=== PATIENT | female | born 1955 | race Caucasian/White ===

== ENCOUNTER → 2017-12-04 | Outpatient (CLI) | payer OTHER ==
[~2017-12-04] MED LIST: ASCO-90 PO; ASPI-496 PO; ASPI-515 PO; ATOR10TA PO; CALC1CAP8 PO; CELE200C PO; CHOL400T2 PO; DOCU-131 PO; IBUP-1223 PO; LEVO112T56 PO; MULT1CAP19 PO; ONDA4TAB10 PO; OXYC5TAB3 PO; TRAM50TA2 PO
== END ==
LOC: STAR 12:24
PROVIDERS: ATTEND Orthopaedic Surgery
DX: Z02.9 Encounter for administrative examinations, unspecified (principal)

== ENCOUNTER 2017-12-09 07:36 | Inpatient (IN) | payer OTHER ==
[~2017-12-09] VITALS: Ht 157.5 cm; Wt 100.3 kg
[~2017-12-09 07:36] MED LIST changes: -ASPI-515 PO; -CELE200C PO; -DOCU-131 PO; +EPINEPHRINE 1 MG/ML, 1ML ONE; -IBUP-1223 PO; +KETOROLAC 60 MG/2 ML ONE; -ONDA4TAB10 PO; -OXYC5TAB3 PO; +ROPIvacaine/PF 0.2%, 20 ML ONE; -TRAM50TA2 PO; +TRANEXAMIC ACID 100 MG/ML, 10ML ONE
[2017-12-09] MEDS ORDERED: LACTATED RINGERS 1,000 ML IV SCH (08:12)
[2017-12-09] MEDS ORDERED: IBUP-1223 PO (08:19)
[2017-12-09] MEDS ORDERED: GABAPENTIN 300 MG CAPSULE PO ONE (08:30)
[2017-12-09] MEDS ORDERED: FENTANYL PF 250 MCG/5ML ONE (08:35)
[2017-12-09] MEDS ORDERED: MIDAZOLAM 1 MG/ML, 2ML ONE (08:35)
[2017-12-09] MEDS ORDERED: MIDAZOLAM 1 MG/ML, 2ML IV PRN (09:00)
[2017-12-09] MEDS ORDERED: ONDANSETRON 2MG/ML, 2ML IV PRN ×2 (09:00→09:30)
[2017-12-09] MEDS ORDERED: ACETAMINOPHEN 500 MG TABLET PO ONE (09:00)
[2017-12-09] MEDS ORDERED: FENTANYL PF 100 MCG/2ML IV PRN (09:00)
[2017-12-09] MEDS ORDERED: PROMETHAZINE 25 MG/ML, 1ML IV PRN (09:00)
[2017-12-09] MEDS ORDERED: EPHEDRINE 50 MG/ML, 1ML IM PRN (09:00)
[2017-12-09] MEDS ORDERED: ALBUTEROL/IPRATROPIUM 2.5MG/0.5MG, 3 ML NPPB PRN (09:00)
[2017-12-09] MEDS ORDERED: LABETALOL 5MG/ML, 20ML IV PRN (09:00)
[2017-12-09] MEDS ORDERED: OXYcodone 5 MG/5 ML ORAL.SOL UDC PO PRN (09:00)
[2017-12-09] MEDS ORDERED: MEPERIDINE/PF 25MG/0.5ML IVPush PRN (09:00)
[2017-12-09] MEDS ORDERED: SENNA/DOCUSATE TABLET PO PRN (09:30)
[2017-12-09] MEDS ORDERED: MAGNESIUM HYDROXIDE 8%, 30ML UDC PO PRN (09:30)
[2017-12-09] MEDS ORDERED: DIPHENHYDRAMINE 25 MG CAPSULE PO PRN (09:30)
[2017-12-09] MEDS ORDERED: ONDANSETRON 4 MG TABLET PO PRN (09:30)
[2017-12-09] MEDS ORDERED: PROMETHAZINE 25 MG/ML, 1ML IM PRN (09:30)
[2017-12-09] MEDS ORDERED: ALUMINUM/MAG/SIMETHICONE 30 ML UDC PO PRN (09:30)
[2017-12-09] MEDS ORDERED: HYDROmorphone 1 MG/ML, 1ML IV PRN (09:30)
[2017-12-09] MEDS ORDERED: BISACODYL 10 MG SUPP PR PRN (09:30)
[2017-12-09] MEDS ORDERED: EPHEDRINE 50 MG/ML, 1ML ONE (09:34)
[2017-12-09] MEDS ORDERED: PHENYLEPHRINE 10 MG/ML ONE (09:34)
[2017-12-09] MEDS ORDERED: PROPOFOL 10 MG/ML, 20ML ONE (10:15)
[2017-12-09] MEDS ORDERED: SUCCINYLCHOLINE 20 MG/ML, 10ML ONE (10:15)
[2017-12-09] MEDS ORDERED: CEFAZOLIN 1,000 MG ONE (10:15)
[2017-12-09] MEDS ORDERED: ONDANSETRON 2MG/ML, 2ML ONE (10:15)
[2017-12-09] MEDS ORDERED: LIDOCAINE GEL 2%, 5ML ONE (10:15)
[2017-12-09] MEDS ORDERED: DEXAMETHASONE 4 MG/ML, 1ML ONE (10:15)
[2017-12-09] MEDS ORDERED: HYDROmorphone 2 MG/ML, 1ML ONE (11:27)
[2017-12-09] MEDS ORDERED: FENTANYL PF 100 MCG/2ML ONE (11:27)
[2017-12-09] MEDS ORDERED: OXYcodone 5 MG/5 ML ORAL.SOL UDC ONE (11:34)
[2017-12-09] MEDS: HYDROmorphone 1 MG/ML, 1ML IV PRN ×3 (11:40→12:00)
[2017-12-09] MEDS ORDERED: TRANEXAMIC ACID 1,000 MG in SODIUM CHLORIDE 0.9% 100 ML IVPB ONE (12:00)
[2017-12-09 14:30] VITALS: BP 111/75
[2017-12-09] MEDS: ACETAMINOPHEN 650 MG/20.3 ML UDC PO PRN (14:54)
[2017-12-09] MEDS: OXYcodone IR 5MG TABLET PO PRN ×2 (14:54→21:22)
[2017-12-09] MEDS: ASPIRIN 81 MG TABLET EC PO SCH (18:37)
[2017-12-09] MEDS: D5%-0.45NACL+KCL 20MEQ 1,000 ML IV SCH (18:37)
[2017-12-09] MEDS: CEFAZOLIN PMX 1GM/50ML 50 ML IVPB SCH (18:38)
[2017-12-09 20:14] VITALS: BP 99/66
[2017-12-09] MEDS ORDERED: ATORVASTATIN 10 MG TABLET PO SCH (21:00)
[2017-12-09] MEDS: DOCUSATE 100 MG CAPSULE PO SCH (21:22)
[2017-12-10 00:42] VITALS: BP 102/64
[2017-12-10] MEDS: CEFAZOLIN PMX 1GM/50ML 50 ML IVPB SCH (02:17)
[2017-12-10] MEDS: D5%-0.45NACL+KCL 20MEQ 1,000 ML IV SCH (02:22)
[2017-12-10 04:21] VITALS: BP 91/56
[2017-12-10] MEDS: OXYcodone IR 5MG TABLET PO PRN ×2 (05:51→10:37)
[2017-12-10] MEDS: ASPIRIN 81 MG TABLET EC PO SCH (05:51)
[2017-12-10] MEDS ORDERED: LEVOTHYROXINE 112 MCG TABLET PO SCH (06:00)
[2017-12-10] MEDS ORDERED: DEXAMETHASONE 4 MG/ML, 1ML IVPush SCH (06:00)
[2017-12-10 07:28] VITALS: BP 97/60
[2017-12-10] MEDS ORDERED: TAMSULOSIN 0.4 MG CAP.ER.24H PO SCH (09:00)
[2017-12-10] MEDS ORDERED: KETOROLAC 30 MG/1 ML IV SCH (09:30)
[2017-12-10] MEDS: DOCUSATE 100 MG CAPSULE PO SCH (10:37)
[2017-12-10] MEDS: ACETAMINOPHEN 650 MG/20.3 ML UDC PO PRN (10:37)
[2017-12-10] MEDS ORDERED: ASPI-515 PO (12:03)
[2017-12-10] MEDS ORDERED: DOCU-131 PO (12:04)
[2017-12-10] MEDS ORDERED: ONDA4TAB10 PO (12:05)
[2017-12-10] MEDS ORDERED: CELE200C PO (12:07)
[2017-12-10] MEDS ORDERED: TRAM50TA2 PO (12:08)
[2017-12-10] MEDS ORDERED: OXYC5TAB3 PO (12:10)
== END 2017-12-10 13:20 | disposition home or self-care (01) | DRG 470 ==
LOC: ORIP 07:36 → 4NOR 12:31 → DCLOUNGE 12-10 12:57
PROVIDERS: ADMIT Orthopaedic Surgery; ATTEND Orthopaedic Surgery
PROC: 0SRB01Z Replacement of Left Hip Joint with Metal Synthetic Substitute, Open Approach (ICD-10-PCS; principal; 2017-12-09 09:15)
DX: M16.12 Unilateral primary osteoarthritis, left hip (principal); E78.5 Hyperlipidemia, unspecified; E03.9 Hypothyroidism, unspecified; Z79.899 Other long term (current) drug therapy
CPT/HCPCS: 36415; 72170; 85014; 85018; 86850; 86900; C1713; J0171; J0690; J1100; J1170; J1885; J2250; J2405; J2704; J2795; J3010; C1776; J0330; J2370; J3480; J7120